=== PATIENT | female | born 1995 | race Caucasian/White ===

== ENCOUNTER 2017-03-08 09:32 | Emergency (ER) | payer BC ==
[~2017-03-08] VITALS: Ht 160 cm; Wt 64.8 kg
[~2017-03-08 09:32] MED LIST: PRENTAB26 PO
[2017-03-08 09:37] VITALS: TEMP 36.8; Ht 160 cm; Wt 64.8 kg
[2017-03-08] MEDS ORDERED: SODIUM CHLORIDE 0.9% 1000ML 1,000 ML IV ONE (09:55)
[2017-03-08] MEDS ORDERED: SODIUM CHLORIDE 0.9% 1000ML 1,000 ML IV STA (09:55)
--- NOTE | 2017-03-08 09:59 | EMERGENCY ROOM VISIT NOTE ---
History Report prepared by Sy: Yoni Bailey Under the Supervision of: Dr. Mayur Carlos M.D. First contact with patient: 09:45 Chief Complaint: WEAKNESS Stated Complaint: WEAKNESS,DIZZINESS,BLEEDING Nursing Triage Summary: Pt states she has a bleeding disorder and her Dr told her to come in to be seen. Pt states bleeding disorder since she was 14, [place] Patient states she started noticing bruising first week of February. Weakness began this weekend. Weakness is bilateral per patient "especially in my legs" 7 months post History of Present Illness The patient is a 22 year old female who presents to the Emergency Room with complaints of constant weakness for the past couple of days and a sudden dizziness spell occurring a few days ago. The patient states that she has a history of Von Willebrand's disease, and she called her PCP, and they told her to come in to the ED for evaluation. She states that she has also been bruising a lot recently and she is very tired and cold. The patient denies any melena or hematochezia. She states that she had a child 7 months ago, and he was delivered without excessive bleeding. She states that her last period was at the beginning of February, and it was heavy which is normal for her. The patient states that she should be taking Amicar while she is menstruating, however she states that she does not take it. She states that she has been keeping up with her fluids. The patient denies any history of bleeding into her joints. Source of History: patient Onset: past couple of days Position: other (global) Quality: other (weakness) Timing: constant Associated Symptoms: No hematochezia, No melena Note: Associated symptoms: Tiredness and bruising Review of Systems See HPI for pertinent positives & negatives. A total of 10 systems reviewed and were otherwise negative. 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 Nurse's notes were reviewed and I agree with. Family History Patient reports no known family medical history. Social History Smoking Status: Current Every Day Smoker Alcohol Use: occasionally Drug Use: none Marital Status: single Occupation Status: student Current/Historical Medications No Active Prescriptions or Reported Meds Allergies Coded Allergies: Aspirin (Verified Allergy, Unknown, not allowed to have per md, 04/11/16) Reported by PT Physical Exam Vital Signs Date Time Temp Pulse Resp B/P Pulse Ox O2 Delivery O2 Flow Rate FiO2 03/08/17 12:45 78 14 109/69 100 03/08/17 11:35 86 12 105/56 96 03/08/17 09:37 36.8 84 16 111/72 98 Room Air Physical Exam General: Non-ill appearing young female in no acute distress. HEENT: Normal cephalic atraumatic. Pupils are equal round and reactive to light. Extraocular movements are intact. Oropharynx is pink with moist mucous membranes. No swelling of the mouth lips or tongue. Neck: Supple with a midline trachea. No meningeal signs or stiffness, no JVD or bruits. No Stridor. Chest: Clear to auscultation bilaterally. No wheezes or rhonchi. No increased work of breathing. Heart: regular rate and rhythm. Abdomen: Soft nontender, nondistended without rebound guarding or rigidity. Extremities: Occasional small bruises on the legs. No petechiae. No cyanosis clubbing or edema. No calf tenderness or assymetry. 2+ patellar reflexes that are symmetrical bilaterally Spine/Back. Non tender to palpation. No CVA tenderness Skin: Good turgor without rashes. Neurologic exam: Cranial nerves two through 12 are intact. Motor and sensation are intact and symmetrical throughout. Medical Decision & Procedures Laboratory Results 03/08/17 10:05 Red Blood Count 4.45, Mean Corpuscular Volume 86.7, Mean Corpuscular Hemoglobin 29.0, Mean Corpuscular Hemoglobin Concent 33.4, Mean Platelet Volume 11.8, Neutrophils (%) (Auto) 61.3, Lymphocytes (%) (Auto) 28.3, Monocytes (%) (Auto) 8.9, Eosinophils (%) (Auto) 1.1, Basophils (%) (Auto) 0.3, Neutrophils # (Auto) 4.54, Lymphocytes # (Auto) 2.10, Monocytes # (Auto) 0.66, Eosinophils # (Auto) 0.08, Basophils # (Auto) 0.02 03/08/17 10:05 Test 03/08/17 10:05 White Blood Count 7.41 K/uL (4.8-10.8) Red Blood Count 4.45 M/uL (4.2-5.4) Hemoglobin 12.9 g/dL (12.0-16.0) Hematocrit 38.6 % (37-47) Mean Corpuscular Volume 86.7 fL (80-100) Mean Corpuscular Hemoglobin 29.0 pg (25-34) Mean Corpuscular Hemoglobin Concent 33.4 g/dl (32-36) Platelet Count 158 K/uL (130-400) Mean Platelet Volume 11.8 fL (7.4-10.4) Neutrophils (%) (Auto) 61.3 % Lymphocytes (%) (Auto) 28.3 % Monocytes (%) (Auto) 8.9 % Eosinophils (%) (Auto) 1.1 % Basophils (%) (Auto) 0.3 % Neutrophils # (Auto) 4.54 K/uL (1.4-6.5) Lymphocytes # (Auto) 2.10 K/uL (1.2-3.4) Monocytes # (Auto) 0.66 K/uL (0.11-0.59) Eosinophils # (Auto) 0.08 K/uL (0-0.5) Basophils # (Auto) 0.02 K/uL (0-0.2) RDW Standard Deviation 45.7 fL (36.4-46.3) RDW Coefficient of Variation 14.4 % (11.5-14.5) Immature Granulocyte % (Auto) 0.1 % Immature Granulocyte # (Auto) 0.01 K/uL (0.00-0.02) Prothrombin Time 10.1 SECONDS (9.0-12.0) Prothromb Time International Ratio 0.9 (0.9-1.1) Activated Partial Thromboplast Time 37.1 SECONDS (21.0-31.0) Partial Thromboplastin Ratio 1.4 Anion Gap 7.0 mmol/L (3-11) Est Creatinine Clear Calc Drug Dose 109.4 ml/min Estimated GFR () 135.5 Estimated GFR (Non- 116.9 BUN/Creatinine Ratio 19.7 (10-20) Calcium Level 8.7 mg/dl (8.5-10.1) Total Bilirubin 0.7 mg/dl (0.2-1) Direct Bilirubin 0.1 mg/dl (0-0.2) Aspartate Amino Transf (AST/SGOT) 16 U/L (15-37) Alanine Aminotransferase (ALT/SGPT) 19 U/L (12-78) Alkaline Phosphatase 67 U/L (45-117) Total Protein 7.0 gm/dl (6.4-8.2) Albumin 4.0 gm/dl (3.4-5.0) Lipase 140 U/L (73-393) Thyroid Stimulating Hormone (TSH) 0.912 uIu/ml (0.300-4.500) Human Chorionic Gonadotropin, Qual NEG (NEG) Laboratory studies as stated above per my review. Medications Administered Medications (Trade) Dose Ordered Sig/Maria Guadalupe Route Start Time Stop Time Status Last Admin Dose Admin Sodium Chloride 1,000 ml @ 999 mls/hr Q1H1M STAT IV 03/08/17 09:55 03/08/17 10:55 DC 03/08/17 10:25 999 MLS/HR Sodium Chloride (Nss 1000ml) 1,000 ml @ 150 mls/hr Q6H40M ONCE IV 03/08/17 09:55 03/08/17 13:00 DC 03/08/17 12:00 150 MLS/HR ED Course 0945: Past medical records reviewed. The patient was evaluated in room A11, and a complete history and physical examination were performed. 0955: Sodium Chloride 1000 ml @ 150 mls/hr IV, Sodium Chloride 1000 ml @ 999 mls /hr IV 1057: I reevaluated the patient, and she was doing well. 1151: I discussed the patient's case with Dr. Mercedes, Hematology, and he states that the patient can follow up with him this week. 1215: Upon reevaluation, the patient is feeling well. I discussed the results and treatment plan with her. She verbalized agreement of the treatment plan. The patient was discharged home. Medical Decision Differentials include, but are not limited to; anemia, thrombocytopenia, infection, bleeding disorder, thyroid disorder, electrolyte or metabolic abnormality. This patient comes in as described above. She has some sort of clotting disorder and has been feeling weak and tired has had some bruising on her legs. She has stable vital signs . She has no petechiae. She looks well. She has had no significant vaginal bleeding or nosebleeds or blood in her stool. She's had no joint bleeding. These symptoms have been going on for several weeks. Multiple blood testing was obtained. She has no fever or white count to suggest infection. She is not anemic. She has normal platelets. She has normal coagulation studies. She's no acute electrode or metabolic abdomen was she's nothing to suggest kidney liver or gallbladder disease. Her TSH is within normal limits and there is nothing to suggest this is related to her thyroid acutely. She has a normal neurologic exam. She has normal reflexes which make Gabriela xie highly unlikely . I did discuss the case with the on- call fulfillment coordinator. 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 At this point she has no evidence of active bleeding she can follow up with the hematology group or primary doctor next couple days for recheck. She was happy the plan and discharged home. Consults Time Called: 1142 Consulting Physician: Dr. Morales, Hematology Returned Call: 1151 I discussed the patient's case with Dr. Mercedes, Hematology, and he states that the patient can follow up with him this week. Impression Primary Impression: Weakness Scribe Attestation The scribe's documentation has been prepared under my direction and personally reviewed by me in its entirety. I confirm that the note above accurately reflects all work, treatment, procedures, and medical decision making performed by me. Departure Information Dispostion Home / Self-Care Prescriptions No Active Prescriptions or Reported Meds Referrals Alberto Huerta M.D. (PCP) Forms HOME CARE DOCUMENTATION FORM, IMPORTANT VISIT INFORMATION Patient Instructions My [facility] qunb Additional Instructions Rest Drink plenty of fluids REturn if: worsening of symptoms, bleeding, any new problems or concerns Follow-up with your Doctor/fulfillment coordinator this week for recheck
[2017-03-08 10:28] LABS: BASO % 0.3 %; BASO ABS # 0.02 K/uL (0-0.2); COMPLETE YES; EOS % 1.1 %; HEMATOCRIT 38.6 % (37-47); IG% 0.1 %; LYMPH % 28.3 %; MEAN CELL VOLUME 86.7 fL (80-100); MEAN CORPUSCULAR HGB CONC 33.4 g/dl (32-36); MEAN PLATELET VOLUME 11.8 fL (7.4-10.4); MONO % 8.9 %; NEUT % 61.3 %; PLATELET COUNT 158 K/uL (130-400); RED BLOOD COUNT 4.45 M/uL (4.2-5.4); WHITE BLOOD COUNT 7.41 K/uL (4.8-10.8)
[2017-03-08 10:36] LABS: INR 0.9 (0.9-1.1); PARTIAL THROMBOPLASTIN RATIO 1.4; PROTHROMBIN TIME (PATIENT) 10.1 SECONDS (9.0-12.0)
[2017-03-08 10:46] LABS: BUN/CREATININE RATIO 19.7 (10-20); CREATININE 0.73 mg/dl (0.60-1.20); POTASSIUM 3.8 mmol/L (3.5-5.1)
[2017-03-08 10:48] LABS: PREG INTERNAL NEGATIVE QC NEG CLEAR BACKGROUND; PREG INTERNAL POSITIVE QC POS CONTROL LINE
[2017-03-08 10:53] LABS: CALCIUM 8.7 mg/dl (8.5-10.1)
[2017-03-08 10:56] LABS: THYROID STIMULATING HORMONE 0.912 uIu/ml (0.300-4.500)
[2017-03-08 12:45] VITALS: BP 109/69; PULSE 78; O2SAT 100
== END 2017-03-08 12:51 | disposition home or self-care (01) ==
LOC: C.EDB 09:33 → C.EDA 12:51
DX: R53.1 Weakness (principal); D68.0 Von Willebrand disease; F17.210 Nicotine dependence, cigarettes, uncomplicated

== ENCOUNTER → 2017-03-11 | Outpatient (CLI) | payer BC ==
[2017-03-11 16:13] LABS: THYROID STIMULATING HORMONE 0.739 uIu/ml (0.300-4.500)
== END | disposition home or self-care (01) ==
LOC: C.LAB 14:19
PROVIDERS: ATTEND Nurse Practitioner
DX: R53.83 Other fatigue (principal); R53.1 Weakness

== ENCOUNTER → 2017-10-20 | Outpatient (CLI) | payer BC | END | disposition home or self-care (01) | LOC: C.LABSPEC 18:28 | PROVIDERS: ATTEND Physician Assistant | DX: Z01.419 Encounter for gynecological examination (general) (routine) without abnormal findings (principal) ==

== ENCOUNTER 2023-05-06 17:22 | Inpatient (IN) ==
[2023-05-06] MEDS ORDERED: SODIUM CHLORIDE 0.9% 1000ML 1,000 ML IV ONE (17:40)
[2023-05-06] MEDS ORDERED: cefTRIAXone SODIUM 2,000 MG/70 ML BAG IV STA (17:40)
--- NOTE | 2023-05-06 17:47 | Emergency Department Note ---
Impression & Plan Sepsis, Acute Lyme disease, Leukopenia ED Provider Note NAME: ARI MARTÍNEZ AGE: 28 SEX: F : 1995 ARRIVES VIA: Walk-In INFORMANT: Patient ED PROVIDER(S): Fransico Reeder DO CHIEF COMPLAINT: chest pain and shortness of breath HPI: Patient is a 28-year-old female with a past medical history of migraine, factor VIII deficiency hemophilia who presents to the ER for chest pain, shortness of breath and achiness since this past Thursday. She was walking around [place] and she notes she was bit in the back of the left leg. She noticed some redness which has been increasing size. No fevers but has been feeling hot and cold. She notes her whole body aches including her bones throughout her whole body. She intermittently gets about 1 to 2 minutes of chest pain. She notes she feels very weak and rundown. No dysuria, urgency, or frequency. No other exacerbating or remitting factors. PAST MEDICAL HISTORY:See Below PAST SURGICAL HISTORY:See Below FAMILY HISTORY:See Below SOCIAL HISTORY:See Below HOME MEDICATIONS:See Below ALLERGIES:See Below VITALS:See Below PHYSICAL EXAMINATION: GENERAL: Sitting up in bed, alert, well appearing, well nourished, no distress, non-toxic EYE EXAM: normal conjunctiva. PERRL and EOM's grossly intact. OROPHARYNX: mucous membranes are moist NECK: supple, no nuchal rigidity, no adenopathy, non-tender LUNGS: Clear to auscultation. Normal chest wall mechanics HEART: no murmurs, S1 normal and S2 normal ABDOMEN: abdomen soft, non-tender, normo-active bowel sounds, no masses, no rebound or guarding. BACK: Back is symmetrical on inspection and there is no deformity, no midline tenderness, no CVA tenderness. SKIN: no rashes and no bruising UPPER EXTREMITIES: upper extremities are grossly normal. LOWER EXTREMITIES: Calves are equal bilateral. DP on the left and PT 2 out of 4. Flexion-extension left hip knee ankle and EHL intact. Erythema and i nduration in the posterior left popliteal fossa NEURO EXAM: Normal sensorium, cranial nerves II-XII grossly intact, normal speech, no gross weakness of arms, no gross weakness of legs. No drift. Finger to nose intact. Gross sensation intact. MEDICAL DECISION MAKING: Patient is a 28-year-old female who presents to the ER for above-stated complaint. IV was established blood work was obtained. Labs show mild leukopenia 4.7 thousand. No significant anemia. Platelets were slightly low at 115. Dimer was negative. BMP on LFTs bilirubin and troponin lipase is unrema rkable. Lyme IgM was equivocal which does suggest Lyme disease. There is an obvious area of erythema in the left popliteal fossa. Question if this is a tick bite. Patient was initially covered with 2 g of Rocephin. I was called to bedside as patient was tachycardic with a heart rate in the 140s and was diaphoretic and was complaining of some chest pain. Repeat chest x-ray was obtained and it was unremarkable. Did order repeat temperature which did take some time and they eventually had a rectal temperature and she was febrile at 39. She was given Tylenol and IV Toradol. She was given 3 L of IV fluids. She was given doxycycline to cover for anaplasmosis as well. They are running a peripheral smear for inclusion bodies. Patient defervesced and was feeling slightly better following this. I discussed the case with Kush Lam for further evaluation management treatment. Triage Nursing notes reviewed. Limited review of prior medical records performed Vital Signs: reviewed and remarkable for HTN Differential diagnosis: Cardiac ischemia, aortic dissection, pulmonary embolism, pneumothorax, pneumonia, pericarditis, myocarditis, esophageal rupture, GERD, cholecystitis, pancreatitis, musculoskeletal, as well as other pathologies. ER treatment provided: See below Diagnostics interpreted by me include EKG and cardiac monitoring as listed below: -Cardiac Monitoring: An order was placed for continuous cardiac monitoring. The monitor shows a rate of 90 with sinus rhythm. -ECG: Sinus rhythm rate 91 Normal axis No PVCs QTc 462 Sinus tachycardia rate of 115 Normal axis No PVCs Poor baseline -Laboratory studies:Interpreted by me as stated above in MDM and shown below. Imaging studies: Xrays: As interpreted by me: Portable AP upright 1 view of the chest shows no focal CTs show: none Consultation(s): As described in [facility] Procedures:none Critical Care: I have personally spent 32 minutes of critical care time in the direct management of this patient. This includes bedside care, interpretation of diagnostic studies, and testing, discussion with consultants, patient, and family members, and other required patient management activities. This 32 minutes is in excess of all separately billable procedures. 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 History of anemia Leg fracture, left GROWTH PLATE PPD positive Sinus bradycardia Von Willebrand disease Surgical History H/O colonoscopy H/O wisdom tooth extraction No history of previous surgery Family History Uncle Cancer Grandfather (Maternal) Cancer Father Clotting disorder Denies family history of Ovarian cancer Prostate cancer Breast cancer Colorectal cancer Social History Smoking Status: Never smoker Second Hand Exposure: No; Do You Dip or Chew Tobacco: No; Hx Alcohol Use: No Hx Substance Use: No Preferred Language: Arabic Hearing Ability: Normal marital status: Current Living Situation: Spouse and Family current occupational status: employed How many Children do You have: 2 Feels Safe at Home: Yes caffeine: Yes Dental Care, Regularly: Yes Physical Activity Frequency: Does not Exercise Seatbelt Use: always Allergies Allergies Allergy/AdvReac Type Severity Reaction Status Date / Time aspirin AdvReac Mild not Verified 04/15/23 11:16 allowed to have per md Home Meds Home Medications Medication Instructions Recorded Confirmed tranexamic acid 500 mg tablet 500 mg PO .COMPLEX 07/31/22 05/06/23 iron 1 tab PO DIRECTED 05/06/23 05/06/23 metoclopramide HCl 10 mg tablet 0 mg PO Q6H PRN nausea and vomiting 05/06/23 05/06/23 (Reglan) Previous Rx's Medication Instructions Recorded meclizine 12.5 mg tablet 12.5 mg PO TID PRN dizziness #30 06/26/22 tabs rizatriptan 10 mg tablet See Rx Instructions PO .COMPLEX #9 10/22/22 tabs amitriptyline 25 mg tablet 25 mg PO DAILY #30 tabs 04/15/23 Results & Data (ED) Vital Signs Vital Signs - 24 hr 05/06/23 17:27 05/06/23 17:56 05/06/23 17:58 Temperature 37.3 C Temperature Source Oral Pulse Rate 86 87 Pulse Rate [Apical] Respiratory Rate 20 Respiratory Effort / Characteristics Non-Labored Spontaneous Respiratory Depth Normal Respiratory Pattern Blood Pressure 141/84 H Blood Pressure [Right Arm] Blood Pressure Mean 103 Blood Pressure Mean [Right Arm] Pulse Oximetry 98 98 Oxygen Delivery Method Room Air Sepsis Recent Fever Within 48 Hours Yes Sepsis New/Unexplained Change in Mental Status No Sepsis Action Taken by Nursing No Action Required 05/06/23 18:01 05/06/23 21:00 05/06/23 21:08 Temperature 37.2 C Temperature Source Oral Pulse Rate Pulse Rate [Apical] 94 H 134 H Respiratory Rate 18 28 H Respiratory Effort / Characteristics Non-Labored Non-Labored Respiratory Depth Normal Normal Respiratory Pattern Regular Blood Pressure Blood Pressure [Right Arm] 127/73 127/73 Blood Pressure Mean Blood Pressure Mean [Right Arm] 91 91 Pulse Oximetry 98 97 Oxygen Delivery Method Room Air Room Air Sepsis Recent Fever Within 48 Hours Sepsis New/Unexplained Change in Mental Status Sepsis Action Taken by Nursing 05/06/23 21:08 05/06/23 21:22 05/06/23 21:25 Temperature Temperature Source Pulse Rate 135 H Pulse Rate [Apical] 135 H Respiratory Rate Respiratory Effort / Characteristics Respiratory Depth Respiratory Pattern Blood Pressure Blood Pressure [Right Arm] 112/50 L Blood Pressure Mean Blood Pressure Mean [Right Arm] 70 Pulse Oximetry Oxygen Delivery Method Sepsis Recent Fever Within 48 Hours Sepsis New/Unexplained Change in Mental Status Sepsis Action Taken by Nursing 05/06/23 21:38 Temperature 39.3 C H Temperature Source Rectal Pulse Rate Pulse Rate [Apical] Respiratory Rate Respiratory Effort / Characteristics Respiratory Depth Respiratory Pattern Blood Pressure Blood Pressure [Right Arm] Blood Pressure Mean Blood Pressure Mean [Right Arm] Pulse Oximetry Oxygen Delivery Method Sepsis Recent Fever Within 48 Hours Sepsis New/Unexplained Change in Mental Status Sepsis Action Taken by Nursing Laboratory Data 05/06/23 17:55 05/06/23 17:55 Lab Results 05/06/23 05/06/23 05/06/23 Range/Units 17:55 17:55 17:55 WBC 4.78 L (4.8-10.8) K/ul RBC 4.11 L (4.20-5.40) M/uL Hgb 12.1 (12.0-16.0) g/dl Hct 35.1 L (37.0-47.0) % MCV 85.4 (80.0-100.0) fL MCH 29.4 (25.0-34.0) pg MCHC 34.5 (32.0-36.0) g/dL RDW Std Deviation 38.3 (36.4-46.3) fL RDW Coeff of Pari 12.3 (11.5-14.5) % Plt Count 115 L (130-400) K/uL MPV 10.9 (9.4-12.4) fL Immature Gran % (Auto) 0.2 % Neut % (Auto) 73.8 % Lymph % (Auto) 14.9 % [place] % (Auto) 10.7 % Eos % (Auto) 0.2 % Baso % (Auto) 0.2 % Neut # (Auto) 3.53 (1.40-6.50) K/uL Lymph # (Auto) 0.71 L (1.2-3.4) K/uL [place] # (Auto) 0.51 (0.11-0.59) K/uL Eos # (Auto) 0.01 (0-0.50) K/uL Baso # (Auto) 0.01 (0-0.2) K/uL Immature Gran # (Auto) 0.01 (0.01-0.20) K/uL D-Dimer 230 (0-500) ug/L FEU Sodium 137 (136-145) mmol/L Potassium 3.8 (3.5-5.1) mmol/L Chloride 102 (98-107) mmol/L Carbon Dioxide 27 (21-32) mmol/L Anion Gap 8 (3-11) BUN 14 (6-23) mg/dl Creatinine 0.72 (0.6-1.2) mg/dl Est Cr Clr Drug Dosing 112.9 ml/min Est GFR ( Amer) 132.1 ml/min Est GFR (Non-Af Amer) 114.0 ml/min BUN/Creatinine Ratio 19.4 (10-20) Glucose 87 (70-99(Fasting)) mg/dl Calcium 9.2 (8.6-10.3) mg/dl Total Bilirubin 0.7 (0.2-1.0) mg/dl AST 18 (13-39) U/L ALT 13 (7-52) U/L Alkaline Phosphatase 68 (34-104) U/L Troponin I High Sens < 2.3 (0-14) pg/ml Total Protein 7.5 (6.0-8.3) gm/dl Albumin 4.7 (3.4-5.0) gm/dl Globulin 2.8 (2.5-4.0) gm/dl Albumin/Globulin Ratio 1.7 (0.9-2) Lipase 15 (11-82) U/L Lyme Disease IgG Ab (Negative) Lyme Disease IgM Ab (Negative) SARS-CoV-2, RNA, NAAT (NEGATIVE) 05/06/23 05/06/23 05/06/23 Range/Units 17:55 20:40 21:52 WBC (4.8-10.8) K/ul RBC (4.20-5.40) M/uL Hgb (12.0-16.0) g/dl Hct (37.0-47.0) % MCV (80.0-100.0) fL MCH (25.0-34.0) pg MCHC (32.0-36.0) g/dL RDW Std Deviation (36.4-46.3) fL RDW Coeff of Pari (11.5-14.5) % Plt Count (130-400) K/uL MPV (9.4-12.4) fL Immature Gran % (Auto) % Neut % (Auto) % Lymph % (Auto) % [place] % (Auto) % Eos % (Auto) % Baso % (Auto) % Neut # (Auto) (1.40-6.50) K/uL Lymph # (Auto) (1.2-3.4) K/uL [place] # (Auto) (0.11-0.59) K/uL Eos # (Auto) (0-0.50) K/uL Baso # (Auto) (0-0.2) K/uL Immature Gran # (Auto) (0.01-0.20) K/uL D-Dimer (0-500) ug/L FEU Sodium (136-145) mmol/L Potassium (3.5-5.1) mmol/L Chloride (98-107) mmol/L Carbon Dioxide (21-32) mmol/L Anion Gap (3-11) BUN (6-23) mg/dl Creatinine (0.6-1.2) mg/dl Est Cr Clr Drug Dosing ml/min Est GFR ( Amer) ml/min Est GFR (Non-Af Amer) ml/min BUN/Creatinine Ratio (10-20) Glucose (70-99(Fasting)) mg/dl Calcium (8.6-10.3) mg/dl Total Bilirubin (0.2-1.0) mg/dl AST (13-39) U/L ALT (7-52) U/L Alkaline Phosphatase (34-104) U/L Troponin I High Sens < 2.3 (0-14) pg/ml Total Protein (6.0-8.3) gm/dl Albumin (3.4-5.0) gm/dl Globulin (2.5-4.0) gm/dl Albumin/Globulin Ratio (0.9-2) Lipase (11-82) U/L Lyme Disease IgG Ab Negative (Negative) Lyme Disease IgM Ab Equivocal A (Negative) SARS-CoV-2, RNA, NAAT NEGATIVE (NEGATIVE) Administered Medications Sodium Chloride (Nss 1000ml) 2,000 mls @ 999 mls/hr IV .Q2H1M ONE Stop: 05/06/23 23:34 Last Admin: 05/06/23 21:38 Dose: 999 mls/hr Documented By: IMTIAZ Discontinued Medications Acetaminophen (Acetaminophen 500 Mg Tab) 1,000 mg PO NOW STA Stop: 05/06/23 21:06 Last Admin: 05/06/23 21:13 Dose: 1,000 mg Documented By: IMTIAZ Ceftriaxone Sodium (Rocephin) 2,000 mg in 70 mls @ 140 mls/hr IV NOW STA Stop: 05/06/23 18:09 Last Infusion: 05/06/23 20:54 Dose: 0 mls/hr Documented By: Admin: 05/06/23 17:58 Dose: 140 mls/hr Documented By: MES Sodium Chloride (Nss 1000ml) 1,000 mls @ 999 mls/hr IV .Q1H1M ONE Stop: 05/06/23 18:40 Last Infusion: 05/06/23 20:55 Dose: 0 mls/hr Documented By: Admin: 05/06/23 17:58 Dose: 999 mls/hr Documented By: MES Ketorolac Tromethamine (Ketorolac Tromethamine 15 Mg/Ml Vial) 15 mg IV NOW ONE Stop: 05/06/23 21:06 Last Admin: 05/06/23 21:13 Dose: 15 mg Documented By: HNB Imaging Data Radiologist's Impression: Chest X-Ray 05/06/23 17:31 XR chest 1V portable HISTORY: Chest pain, nonspecific COMPARISON: Chest 07/31/2022. FINDINGS: The lungs are clear. Cardiac silhouette is normal in size. No pleural effusions. No pneumothorax. IMPRESSION: No acute process. ACT 112: Negative or not required by law. Electronically signed by: Milton Huff M.D. 05/06/2023 7:03 PM Discharge Plan Visit Data Chief Complaint: Illness Stated Complaint: WEAKNESS,FATIGUE,SOB,CHEST PAIN,BITE NADIRA ED Provider: Fransico Reeder Discharge Problem: Sepsis, Acute Lyme disease, Leukopenia Forms Stand Alone Forms: [facility] [employer] Prescriptions Prescriptions: No Action meclizine 12.5 mg tablet 12.5 mg PO TID PRN (Reason: dizziness) Qty: 30 0RF Fluzone Quad (PF) 60 mcg (15 mcg x 4)/0.5 mL syringe 0.5 ml IM ONCE Qty: 0.5 0RF tranexamic acid 500 mg tablet 500 mg PO .COMPLEX Rx Instructions: 1000 mg orally every 4 hours during menstrual cycle; rizatriptan 10 mg tablet See Rx Instructions PO .COMPLEX Qty: 9 2RF Rx Instructions: take 1 tab at onset of headache; if no relief may repeat 1 tab after at least 2 hrs; max = 3 tabs/24 hr PO amitriptyline 25 mg tablet 25 mg PO DAILY Qty: 30 2RF Nurtec ODT 75 mg tablet,disintegrating 75 mg PO DIRECTED PRN (Reason: Migraine Headache) 0RF metoclopramide HCl [Reglan] 10 mg tablet 0 mg PO Q6H PRN (Reason: nausea and vomiting) Rx Instructions: pt isn't sure of this medication iron 1 tab PO DIRECTED Referrals Referrals: Frandy Saldana DO [Physician] -
[2023-05-06 18:28] LABS: Basophils # (auto) 0.01 K/uL (0-0.2); Basophils % (auto) 0.2 %; Eosinophils # (auto) 0.01 K/uL (0-0.50); Eosinophils % (auto) 0.2 %; Hematocrit (blood only) 35.1 % (37.0-47.0); Hemoglobin 12.1 g/dl (12.0-16.0); Immature Granulocytes # (auto) 0.01 K/uL (0.01-0.20); Immature Granulocytes % (auto) 0.2 %; Lymphocytes # (auto) 0.71 K/uL (1.2-3.4); Lymphocytes % (auto) 14.9 %; Mean Corpuscular Hemoglobin 29.4 pg (25.0-34.0); Mean Corpuscular Hgb Conc 34.5 g/dL (32.0-36.0); Mean Corpuscular Volume 85.4 fL (80.0-100.0); Mean Platelet Volume 10.9 fL (9.4-12.4); Monocytes # (auto) 0.51 K/uL (0.11-0.59); Monocytes % (auto) 10.7 %; Neutrophils # (auto) 3.53 K/uL (1.40-6.50); Neutrophils % (auto) 73.8 %; Platelet Count 115 K/uL (130-400); RDW Coefficient of Variation 12.3 % (11.5-14.5); RDW Standard Deviation 38.3 fL (36.4-46.3); Red Blood Count 4.11 M/uL (4.20-5.40); White Blood Count 4.78 K/ul (4.8-10.8)
[2023-05-06 18:45] LABS: Alanine Aminotransferase 13 U/L (7-52); Albumin Globulin Ratio 1.7 (0.9-2); Albumin Level 4.7 gm/dl (3.4-5.0); Alkaline Phosphatase 68 U/L (34-104); Anion Gap 8 (3-11); Aspartate Aminotransferase 18 U/L (13-39); BUN Creatinine Ratio 19.4 (10-20); Bilirubin,Total 0.7 mg/dl (0.2-1.0); Blood Urea Nitrogen 14 mg/dl (6-23); Calcium 9.2 mg/dl (8.6-10.3); Carbon Dioxide 27 mmol/L (21-32); Chloride 102 mmol/L (98-107); Creatinine Clr Calc Pharmacy 112.9 ml/min; Est GFR (African American) 132.1 ml/min; Globulin 2.8 gm/dl (2.5-4.0); Glucose 87 mg/dl (70-99(Fasting)); Lipase 15 U/L (11-82); Potassium 3.8 mmol/L (3.5-5.1); Sodium 137 mmol/L (136-145); Total Protein 7.5 gm/dl (6.0-8.3)
[2023-05-06 18:51] LABS: Troponin I High Sensitivity < 2.3 pg/ml (0-14)
[2023-05-06 18:55] LABS: D Dimer 230 ug/L FEU (0-500)
[2023-05-06 19:03] LABS: Lyme Ab IgG w/WB Rflx Negative (Negative)
--- NOTE | 2023-05-06 19:04 | XRay Report ---
XR chest 1V portable HISTORY: Chest pain, nonspecific COMPARISON: Chest 07/31/2022. FINDINGS: The lungs are clear. Cardiac silhouette is normal in size. No pleural effusions. No pneumot horax. IMPRESSION: No acute process. ACT 112: Negative or not required by law. Electronically signed by: Milton Huff M.D. 05/06/2023 7:03 PM
[2023-05-06 19:15] LABS: Lyme Ab IgM w/WB Rflx Equivocal (Negative)
[2023-05-06] MEDS ORDERED: KETOROLAC TROMETHAMINE 15 MG/ML VIAL IV ONE (21:05)
[2023-05-06] MEDS ORDERED: ACETAMINOPHEN 500 MG TAB PO STA (21:05)
[2023-05-06] MEDS ORDERED: SODIUM CHLORIDE 0.9% 1000ML 2,000 ML IV ONE (21:34)
[2023-05-06] MEDS ORDERED: DOXYCYCLINE HYCLATE 100 MG in DEXTROSE 5% 100 ML IV STA (21:44)
[2023-05-06] MEDS ORDERED: VANCOMYCIN CONSULT ACTIVE PRN (22:47)
[2023-05-06] MEDS ORDERED: VANCOMYCIN HCL 1,500 MG in SODIUM CHLORIDE 0.9% 500 ML IV STA (22:51)
[2023-05-06 23:33] LABS: Lactate Dehydrogenase 187 U/L (86-244)
[2023-05-06 23:42] LABS: Appearance Urine Clear (Clear); Bilirubin Urine Negative (Negative); Blood Urine Negative (Negative); Color Urine Yellow; Glucose Urine UA Negative (Negative); Ketones Urine 1+ (Negative); Leukocyte Esterase Urine Negative (Negative); Nitrite Urine Negative (Negative); Protein Urine Negative (Negative); Urobilinogen Urine Negative (Negative)
--- NOTE | 2023-05-06 23:42 | History & Physical Report ---
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 Work-up thus far has not been conclusive as to the cause of the patient's symptoms, but equivocal IgM Lyme antibody is positive. Patient will be admitted for further work-up and broad-spectrum antibiotic treatment. -Admit to telemetry -Meeting SIRS criteria on admission with tachypnea, fever, and tachycardia -Patient received 3 L of fluid in the ED, continue maintenance with lactated ringer -Source not identified as of yet. -Rash behind left knee does not appear to be erythema migrans -Timeline between bite and symptoms would not be indicative of acute Lyme disease albeit cannot be ruled out entirely at this time -Anaplasma and Babesia smears negative -Blood cultures taken and pending -UA awaiting to be collected at the time of writing this note but no urinary symptoms per patient -Given concern for tickborne illness Rocephin and doxycycline on board at this time, vancomycin added as well given possible skin source with rash behind left knee -[facility] [place] infectious disease consult ordered, appreciate recommendations -Morning CBC, CMP, CRP (2) Elevated partial thromboplastin time (PTT): Plan: - Suspect from chronic bleeding disorders noted in chart -Unsure of actual diagnosis the patient has: Multiple notes say that she is only a carrier for either von Willebrand disease 2 and or hemophilia VIII without ruiz diagnosis. 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: Plan: See above (4) Von Willebrand disease: Plan: See above (5) History of migraine headaches: Plan: - Continue amitriptyline daily -Triptans as needed for termination Plan Dispo: Admit to telemetry for further infectious work-up and infectious disease consultation Diet: Regular DVT prophylaxis: SCDs CODE STATUS: Full code History of Present Illness Chief Complaint: General Unwellness Primary Care Provider: Ryann Lopes MD Patient is a 28-year-old female with past medical history of migraines, carrier of von Willebrand factor 2N versus 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 Apparently, patient has a camp that they go to and recently [place] [facility] [place], she notes that she was bit in the back of her left leg. Since that Thursday, she has had redness that has been increasing in size. Overall has been doing okay on the first and second day but became progressively more achy and generally unwell. She reports feeling hot and cold since this happened but no recorded fevers at home. No nausea or vomiting. She reports she feels very weak. No urinary symptoms. Majority of the information above was gathered from the patient's who is in the ED room because patient is quite lethargic. The patient is able to tell me that she has a headache at the back of her head. No neck stiffness or neurologic deficits as she is able to report. No other complaints at this time ED course: Patient evaluated in the ED and lab results significant for white blood cell count of 4.78, platelet count of 115, negative high-sensitivity troponin, and an equivocal Lyme IgM antibody. Negative Babesia and anaplasmosis peripheral blood smear. Chest x-ray showing no acute process. EKG showing normal sinus rhythm with nonspecific ST changes. Patient to be admitted and consulted by hospitalist service due to SIRS criteria with possible source being tickborne illness. Allergies Allergy/AdvReac Type Severity Reaction Status Date / Time aspirin AdvReac Mild not Verified 04/15/23 11:16 allowed to have per md Home Medications Medication Instructions Recorded Confirmed Type meclizine 12.5 mg tablet 12.5 mg PO TID PRN dizziness #30 06/26/22 05/06/23 Rx tabs tranexamic acid 500 mg tablet 500 mg PO .COMPLEX 07/31/22 05/06/23 History rizatriptan 10 mg tablet See Rx Instructions PO .COMPLEX #9 10/22/22 05/06/23 Rx tabs amitriptyline 25 mg tablet 25 mg PO DAILY #30 tabs 04/15/23 05/06/23 Rx iron 1 tab PO DIRECTED 05/06/23 05/06/23 History metoclopramide HCl 10 mg tablet 0 mg PO Q6H PRN nausea and vomiting 05/06/23 05/06/23 History (Reglan) Past Med/Surg History Medical History (Updated 05/07/23 @ 16:31 by Teresa George MD) Depression with anxiety Dry skin Epidermoid cyst 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 History of anemia Leg fracture, left GROWTH PLATE PPD positive Sinus bradycardia Von Willebrand disease Surgical History H/O colonoscopy H/O wisdom tooth extraction No history of previous surgery Family History Uncle Cancer Grandfather (Maternal) Cancer Father Clotting disorder Denies family history of Ovarian cancer Prostate cancer Breast cancer Colorectal cancer Social History Smoking Status: Former smoker Second Hand Exposure: No; Do You Dip or Chew Tobacco: No; Hx Alcohol Use: No Hx Substance Use: No Preferred Language: Com[place]an Communication Ability: Effective Hearing Ability: Normal 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 Beliefs That Will Affect Care: None marital status: Current Living Situation: Spouse Current Living Situation Comment: with current occupational status: employed How many Children do You have: 2 Other Information That Helps Us Care for You: No Feels Safe at Home: Yes Safety Concerns: Feels Safe At This Time caffeine: Yes Dental Care, Regularly: Yes Physical Activity Frequency: Does not Exercise Seatbelt Use: always Assistive Devices: None Review of Systems Review of Systems: All systems reviewed & are unremarkable except as noted in HPI & below Physical Exam Constitutional: well developed, well nourished, + ill appearing and + lethargic Eyes: + anicteric sclerae Neck: normal visual inspection Respiratory: normal respiratory effort, lungs clear to auscultation Cardiovascular: Rate/Rhythm: regular rhythm and + tachycardic Extremities: no edema Gastrointestinal (Abdomen): Inspection/Auscultation: abdomen normal to inspection Musculoskeletal: Head/Neck/Chest: normocephalic and head atraumatic Generally weak Skin: Pt is diaphoretic Neurologic: moves all extremities Psychiatric: Orientation: alert, oriented x 3 and cooperative Lymphatic: no cervical or axillary lymphadenopathy Results & Data Results & Data Vital Signs (Past 12 Hours) Vital Signs Temp Pulse Pulse Resp BP BP Pulse Ox 05/06/23 23:37 107/62 05/06/23 23:00 90 17 115/61 98 05/06/23 21:38 39.3 C H 05/06/23 21:25 135 H 05/06/23 21:22 112/50 L 05/06/23 21:08 135 H 05/06/23 21:08 37.2 C 05/06/23 21:00 134 H 28 H 127/73 97 05/06/23 18:01 94 H 18 127/73 98 05/06/23 17:58 98 05/06/23 17:56 87 05/06/23 17:27 37.3 C 86 20 141/84 H 98 O2 Del Method 05/06/23 23:37 05/06/23 23:00 Room Air 05/06/23 21:38 05/06/23 21:25 05/06/23 21:22 05/06/23 21:08 05/06/23 21:08 05/06/23 21:00 Room Air 05/06/23 18:01 Room Air 05/06/23 17:58 05/06/23 17:56 05/06/23 17:27 Room Air Supervising Physician Co-Signing Physician Notes Attending addendum: I have physically seen this patient, have supervised the medical residents activities, and agree with the H&P unless as otherwise noted. 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
[2023-05-06] MEDS ORDERED: ENOXAPARIN INJ 40 MG/0.4 ML SYR SQ SCH (23:45)
[2023-05-06] MEDS ORDERED: RIZATRIPTAN BENZOATE 10 MG TAB PO PRN (23:47)
[2023-05-06] MEDS ORDERED: ONDANSETRON INJ 2 MG/ML 2 ML VIAL IV PRN (23:47)
[2023-05-07] MEDS: LACTATED RINGER'S 1,000 ML IV SCH ×3 (00:09→19:11)
[2023-05-07 00:42] LABS: Fibrinogen 402 mg/dl (184-400); Partial Thromboplastin Ratio 1.6
[2023-05-07 00:50] LABS: Partial Thromboplastin Time 43.9 Seconds (21.0-31.0)
[2023-05-07] MEDS: ACETAMINOPHEN 325 MG TAB PO PRN ×4 (03:58→17:19)
[2023-05-07 07:08] LABS: Alanine Aminotransferase 19 U/L (7-52); Albumin Globulin Ratio 1.6 (0.9-2); Albumin Level 3.5 gm/dl (3.4-5.0); Alkaline Phosphatase 50 U/L (34-104); Anion Gap 5 (3-11); Aspartate Aminotransferase 23 U/L (13-39); BUN Creatinine Ratio 15.4 (10-20); Basophils # (auto) 0.01 K/uL (0-0.2); Basophils % (auto) 0.3 %; Bilirubin,Total 0.6 mg/dl (0.2-1.0); Blood Urea Nitrogen 8 mg/dl (6-23); C Reactive Protein 4.98 mg/dl (0-0.5); Calcium 7.7 mg/dl (8.6-10.3); Carbon Dioxide 23 mmol/L (21-32); Chloride 110 mmol/L (98-107); Creatinine Clr Calc Pharmacy 156.7 ml/min; Est GFR (African American) > 150.0 ml/min; Globulin 2.2 gm/dl (2.5-4.0); Glucose 91 mg/dl (70-99(Fasting)); Hematocrit (blood only) 30.7 % (37.0-47.0); Hemoglobin 10.7 g/dl (12.0-16.0); Immature Granulocytes # (auto) 0.01 K/uL (0.01-0.20); Immature Granulocytes % (auto) 0.3 %; Mean Corpuscular Hemoglobin 29.6 pg (25.0-34.0); Mean Corpuscular Hgb Conc 34.9 g/dL (32.0-36.0); Mean Corpuscular Volume 84.8 fL (80.0-100.0); Mean Platelet Volume 11.2 fL (9.4-12.4); Monocytes # (auto) 0.54 K/uL (0.11-0.59); Monocytes % (auto) 13.5 %; Neutrophils # (auto) 2.84 K/uL (1.40-6.50); Neutrophils % (auto) 70.9 %; Platelet Count 79 K/uL (130-400); Platelet Estimate Decreased (Normal); Potassium 3.6 mmol/L (3.5-5.1); RDW Coefficient of Variation 12.1 % (11.5-14.5); RDW Standard Deviation 37.2 fL (36.4-46.3); Red Blood Count 3.62 M/uL (4.20-5.40); Sodium 138 mmol/L (136-145); Total Protein 5.7 gm/dl (6.0-8.3)
[2023-05-07] MEDS: VANCOMYCIN HCL 1,000 MG in SODIUM CHLORIDE 0.9% 250 ML IV SCH ×2 (07:39→17:14)
--- NOTE | 2023-05-07 08:12 | Hospitalist Progress Note ---
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 Work-up thus far has not been inconclusive as to the cause of the patient's symptoms. Equivocal IgM Lyme antibody is positive. Patient's low WBC (4) and low platelets (79) raise suspicion of anaplasmosis. Patient has an insect bite behind her left calf from 5 days ago that is surrounded by an area of erythema. Does not appear to be erythema migrans. Possible spider bite vs insect bite with surrounding cellulitis. Of note, the patient's son had a temperature (101.9) last night but no other symptoms. Patient admitted on broad spectrum antibiotics: doxycycline for coverage of possible tick-borne infection, vancomycin for possible spider bite coverage, and for cellulitis coverage. Infectious disease consulted, appreciate recs. SIRS: -Admit to telemetry -Meeting SIRS criteria on admission with tachypnea, fever, and tachycardia Patient has been afebrile since 05/06 21:00, pulse and respiratory rate within normal limits. -Patient received 3 L of fluid in the ED, continue maintenance with lactated ringer -Source not identified as of yet. -Rash behind left knee does not appear to be erythema migrans -Timeline between bite and symptoms would not be indicative of acute Lyme disease but given endemic region cannot be ruled out entirely at this time. Lyme IgM equivocal, IgG negative. Lyme western blot pending. -Anaplasma and Babesia smears negative -- PCR ordered per ID -Blood cultures taken and pending -UA negative for nitrites. -Rocephin, doxycycline, vancomycin started on admission -- Rocephin stopped 05/07. -[facility] [place] infectious disease consult ordered, appreciate recommendations -Per ID, respiratory viral panel ordered -- negative -Morning CBC, CMP, CRP Chest Pain: -CXR performed in ED was negative. -Troponins within normal limits -Repeat ECG 05/07 showed normal sinus rhythm. -TTE performed 05/07, results pending. -Consider chest CT if cardiopulmonary chest pain does not resolve. (2) Elevated partial thromboplastin time (PTT): Plan: - Suspect from chronic bleeding disorders noted in chart -Unsure of actual diagnosis the patient has: Multiple notes say that she is only a carrier for either von Willebrand disease 2 and or hemophilia VIII without ruiz diagnosis. 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: Plan: See above (4) Von Willebrand disease: Plan: See above (5) History of migraine headaches: Plan: - Continue amitriptyline daily -Triptans as needed for termination Plan Dispo: Admit to telemetry for further infectious work-up and infectious disease consultation Diet: Regular DVT prophylaxis: SCDs CODE STATUS: Full code Admission and Anticipated Discharge Date Admission Date: May 06, 2023 Supervising Physician Co-Signing Physician Notes I personally examined the patient and verified all dugan points of history and exam, discussed case, and 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 Vitals noted, in general she is awake and alert pleasant no distress. HEENT normocephalic atraumatic mucous membranes moist. Breathing unlabored no accessory muscle use good effort. [place]-colored minimally tender patch of erythema behind her knee, no necrosisbut she shows me a picture from yesterday and had a distinctly deep purple center which has now resolved. 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 Her picture from yesterday makes it seem quite consistent that the lesion behind her knee may have been cellulitis from a spider bite. Continue Vanco and Doxy for now, improving, continue to follow closely. Hopefully home soon. Chest pain likely secondary to myalgias from anaplasmosisbut follow, await echo. If it worsens or she develops any respiratory symptomsthen would want to reimage chest to look for any telltale signs that it would actually be BBC with some pulmonary involvementbut this seems very unlikely. Subjective 05/07: This morning Estefanía is feeling better than yesterday but still very uncomfortable. She says her joint/bone pain feels improved, but she is complaining of a headache and more frequent chest pain. Patient describes her chest pain as crushing, but non-radiating, and notes that it is associated with dyspnea. Pain is not reproducible with palpation, but patient notes that all of her joints are tender to the touch. Physical Exam Physical Exam: Constitutional: well developed, well nourished, ill appearing and lethargic HEENT: NCAT, anicteric sclerae Neuro: AO x 3, no focal neurologic defects Respiratory: normal respiratory effort, lungs clear to auscultation Cardiovascular: regular rhythm and tachycardic, no rubs murmurs or gallops. No edema Gastrointestinal (Abdomen): Normoactive bowel sounds. Non-tender, non-distended Musculoskeletal: Head/Neck/Chest: normocephalic and head atraumatic. Overally generally weak Skin: Erythematous rash behind the left knee with insect bite at the center - no associated central necrosis or fluctuance. Left knee warm to the touch compared to right. Results & Data Results & Data Vital Signs (Past 12 Hours) Vital Signs Temp Pulse Pulse Resp BP Pulse Ox Pulse Ox 05/07/23 05:33 90 05/07/23 04:54 37 C 96 H 14 100/64 96 05/07/23 03:58 36.5 C 05/06/23 22:18 77 18 108/61 98 05/06/23 23:47 81 18 108/64 98 05/06/23 23:47 98 05/06/23 23:37 107/62 05/06/23 23:00 90 17 115/61 98 05/06/23 21:38 39.3 C H 05/06/23 21:25 135 H 05/06/23 21:22 112/50 L 05/06/23 21:08 135 H 05/06/23 21:08 37.2 C 05/06/23 21:00 134 H 28 H 127/73 97 O2 Del Method O2 Del Method 05/07/23 05:33 05/07/23 04:54 Room Air 05/07/23 03:58 05/06/23 22:18 Room Air 05/06/23 23:47 Room Air 05/06/23 23:47 Room Air 05/06/23 23:37 05/06/23 23:00 Room Air 05/06/23 21:38 05/06/23 21:25 05/06/23 21:22 05/06/23 21:08 05/06/23 21:08 05/06/23 21:00 Room Air
[2023-05-07] MEDS: AMITRIPTYLINE HCL 25 MG TAB PO SCH (08:38)
[2023-05-07] MEDS: ADVANCED PROBIOTIC 1250 MG CAPSULE PO SCH (08:38)
--- NOTE | 2023-05-07 09:27 | Infectious Disease Consult ---
Date of Consultation May 07, 2023 Assessment & Plan (1) Leukopenia: (2) Thrombocytopathia: (3) Fever: Plan Micro: 05/06 Anaplasma/Babesia smear: neg 05/06 Lyme screen: IgM equivocal, IgG negative. 05/06 COVID-19: neg 05/06 BCx x2: pending Abx: Vanc 05/06 - present Ceftriaxone 05/06 Doxycycline 05/06 - present Problems: #Fever #Leukopenia #Thrombocytopenia 28 yo F with history of factor VIII deficiency, chronic thrombocytopenia, iron deficiency anemia, migraines who presented on 05/06 with chest pain, shortness of breath, achiness x 5 days, found to have fever, leukopenia, thrombocytopenia. Pt sustained an insect bite on posterior L thigh on 05/02 while sitting under a pavilion in a [place]ed area, and developed some redness in the area with associated pain. Denies spreading erythema. On the night of 05/03, she began developing symptoms of generalized weakness and malaise, feeling hot/cold, shortness of breath, chest pain. On presentation, initial VSS, but pt became febrile to 39.3, tachycardic to 130s in the evening. Labs showed WBC 4.78, Hb 12.1, plt 115 (has been ~140-160 over the last 2 years), normal LFTs, normal lactate, UA negative, COVID-19 negative. CXR negative. Lyme screen with equivocal IgM, negative IgG. Lyme western blot pending. Anaplasma/Babesia smear negative. Anaplasma PCR pending. Pt was started on empiric vanc, ceftriaxone, doxycycline. Thrombocytopenia worsened to 79 on 05/07. On 05/07, pt is feeling some improvement in her malaise and shortness of breath. Aching chest pain is more localized to L chest. Has a posterior headache, but no neck stiffness. Denies cough, sore throat, rhinorrhea, abd pain, diarrhea, dysuria, other rashes. On day of admission, there was an area of central darkening in the erythema, which is no longer there 05/07. [place], but does not interact with the cows much. Her son had a T101.9 last night, but is not displaying other symptoms. Denies recent travel. Has never traveled outside of the [place]. If this were a tickborne illness, it would likely be unrelated to the insect bite she sustained on 05/02, as tickborne illness typically has a longer incubation period. [place] in [place] area, so tickborne illness remains in the differential given her leukopenia and thrombocytopenia. Pt's showed a picture of the rash on 05/06 showing a central darkening--could consider a spider bite with systemic symptoms. Recommendations: -Continue empiric doxycycline 100 mg PO BID -Follow-up Lyme western blot -Ordered Ehrlichia PCR, Babesia PCR, respiratory viral panel -Consider discontinuation of vanc Discussed with primary team. Will continue to follow. Please page [facility] with further questions. Consultation Information Consultation was provided via telemedicine using two-way real-time interactive telecommunication between the patient and the telemedicine provider. For the duration of the visit, the provider was performing the assessment from a different facility than the patient. This includesuse of bluetooth stethoscope forauscultationperformed by the telepresenter that the telemedicine provider can hear if described in the physical exam. Care Associate contact information: Please call [facility] . (Phone Number For Physician Use Only) After establishing a telemedicine visit, patient was: Patient was verified with two unique identifiers, Patient/authorized rep acknowledged consent and understanding and Gave permission to continue telehealth session Time Spent with Patient: Initial => 40 min History of Present Illness Reason for Consultation: SIRS with unknown source, possible tickborne illness Attending Physician: Fransico James DO History of Present Illness 28 yo F with history of factor VIII deficiency, chronic thrombocytopenia, iron deficiency anemia, migraines who presented on 05/06 with chest pain, shortness of breath, achiness x 5 days. Pt reports that she was sitting under a pavilion in a wooded area on 05/02 and got an insect bite on the back of her L leg. She did not visualize the insect. She developed some redness in the area of the bite, with associated pain. She does not feel the erythema has been spreading. On the night of 05/03, she began developing symptoms of generalized weakness and malaise, feeling hot/cold, shortness of breath, chest pain. On presentation, initial VSS, but pt became febrile to 39.3, tachycardic to 130s in the evening. Labs showed WBC 4.78, Hb 12.1, plt 115 (has been ~140-160 over the last 2 years), normal LFTs, normal lactate, UA negative, COVID-19 negative. CXR negative. Lyme screen with equivocal IgM, negative IgG. Lyme western blot pending. Anaplasma/Babesia smear negative. Anaplasma PCR pending. Pt was started on empiric vanc, ceftria xone, doxycycline. Plt decreased to 79 today. Pt reports feeling a bit better today. Yesterday, she felt like her "bones were going to break in half", but today the sensitivity is not as bad. The chest pain from yesterday is becoming more localized to the L chest--described as a constant aching. Her shortness of breath is improved, and for the most part back to normal. She reports a posterior headache, no neck stiffness. Denies cough, sore throat, rhinorrhea, abd pain, diarrhea, dysuria, other rashes. On day of admission, there was an area of central darkening in the erythema, which is no longer there today. Pt lives with her and two children ages 4 and 6. One son had a temperature of 101.9 last night, but is not displaying other symptoms. She lives in the [facility] and they own a dairy farm. She is not aware of known tick bites. She is a clinical nursing assistant. She has an indoor pet cat. There are cows on the dairy farm, but the pt does not interact with them much (petted one the other day). Denies other animal exposures. Denies recent travel. Was born in [place], [place] and has never traveled outside of the country. She had family visiting from [place] recently. Allergies Allergy/AdvReac Type Severity Reaction Status Date / Time aspirin AdvReac Mild not Verified 04/15/23 11:16 allowed to have per md Home Medications Medication Instructions Recorded Confirmed Type meclizine 12.5 mg tablet 12.5 mg PO TID PRN dizziness #30 06/26/22 05/06/23 Rx tabs tranexamic acid 500 mg tablet 500 mg PO .COMPLEX 07/31/22 05/06/23 History rizatriptan 10 mg tablet See Rx Instructions PO .COMPLEX #9 10/22/22 05/06/23 Rx tabs amitriptyline 25 mg tablet 25 mg PO DAILY #30 tabs 04/15/23 05/06/23 Rx iron 1 tab PO DIRECTED 05/06/23 05/06/23 History metoclopramide HCl 10 mg tablet 0 mg PO Q6H PRN nausea and vomiting 05/06/23 05/06/23 History (Reglan) Patient History Medical History (Updated 05/07/23 @ 16:31 by Teresa George MD) Depression with anxiety Dry skin Epidermoid cyst 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 History of anemia Leg fracture, left GROWTH PLATE PPD positive Sinus bradycardia Von Willebrand disease Surgical History H/O colonoscopy H/O wisdom tooth extraction No history of previous surgery Family History Uncle Cancer Grandfather (Maternal) Cancer Father Clotting disorder Denies family history of Ovarian cancer Prostate cancer Breast cancer Colorectal cancer Social History Smoking Status: Former smoker Second Hand Exposure: No; Do You Dip or Chew Tobacco: No; Hx Alcohol Use: No Hx Substance Use: No Preferred Language: Thai Communication Ability: Effective Hearing Ability: Normal Business Development Director Required: No Beliefs That Will Affect Care: None marital status: Current Living Situation: Spouse Current Living Situation Comment: with current occupational status: employed How many Children do You have: 2 Other Information That Helps Us Care for You: No Feels Safe at Home: Yes Safety Concerns: Feels Safe At This Time caffeine: Yes Dental Care, Regularly: Yes Physical Activity Frequency: Does not Exercise Seatbelt Use: always Assistive Devices: None Review of System A complete ROS was performed and is negative except as mentioned in the HPI. Physical Exam Physical Exam: GEN: fatigued appearing HEENT: Normocephalic, atraumatic. EOMI. No oropharyngeal lesions or exudates LAD: No cervical, supraclavicular LAD. RESP: No increased work of breathing ABD: Soft, non-distended. Non-tender to palpation. EXT: No LE edema. Warm, well-perfused. SKIN: L posterior thigh with rounded elongated area of erythema without central darkening/clearing NEURO: Alert and oriented. Answers all questions appropriately. PSYCH: Normal mood, affect appropriate. Results & Data Vital Signs (Past 12 Hours) Vital Signs Temp Pulse Pulse Resp BP Pulse Ox Pulse Ox 05/07/23 06:10 85 05/07/23 08:13 37.2 C 85 18 107/69 97 05/07/23 05:33 90 05/07/23 04:54 37 C 96 H 14 100/64 96 05/07/23 03:58 36.5 C 05/06/23 22:18 77 18 108/61 98 05/06/23 23:47 81 18 108/64 98 05/06/23 23:47 98 05/06/23 23:37 107/62 05/06/23 23:00 90 17 115/61 98 05/06/23 21:38 39.3 C H O2 Del Method O2 Del Method 05/07/23 06:10 05/07/23 08:13 Room Air 05/07/23 05:33 05/07/23 04:54 Room Air 05/07/23 03:58 05/06/23 22:18 Room Air 05/06/23 23:47 Room Air 05/06/23 23:47 Room Air 05/06/23 23:37 05/06/23 23:00 Room Air 05/06/23 21:38 Laboratory Results Short CBC 05/06/23 05/07/23 Range/Units 17:55 05:57 WBC 4.78 L 4.00 L (4.8-10.8) K/ul Hgb 12.1 10.7 L (12.0-16.0) g/dl Hct 35.1 L 30.7 L (37.0-47.0) % Plt Count 115 L 79 L (130-400) K/uL BMP 05/06/23 05/07/23 17:55 05:57 Sodium 137 138 Potassium 3.8 3.6 Chloride 102 110 H Carbon Dioxide 27 23 BUN 14 8 Creatinine 0.72 0.52 L Glucose 87 91 Calcium 9.2 7.7 L Liver Function 05/06/23 05/07/23 Range/Units 17:55 05:57 Total Bilirubin 0.7 0.6 (0.2-1.0) mg/dl AST 18 23 (13-39) U/L ALT 13 19 (7-52) U/L Alkaline Phosphatase 68 50 (34-104) U/L Albumin 4.7 3.5 (3.4-5.0) gm/dl Urine 05/06/23 Range/Units 23:07 Urine Color Yellow Urine Appearance Clear (Clear) Urine pH 7.0 (4.5-7.5) Ur Specific [place] 1.020 (1.000-1.030) Urine Protein Negative (Negative) Urine Glucose (UA) Negative (Negative) Diagnostic Findings Chest X-Ray 05/06/23 17:31 XR chest 1V portable HISTORY: Chest pain, nonspecific COMPARISON: Chest 07/31/2022. FINDINGS: The lungs are clear. Cardiac silhouette is normal in size. No pleural effusions. No pneumothorax. IMPRESSION: No acute process. ACT 112: Negative or not required by law. Electronically signed by: Milton Huff M.D. 05/06/2023 7:03 PM Medications Administered Current Inpatient Medications Acetaminophen (Acetaminophen 325 Mg Tab) 650 mg PO Q4H PRN PRN Reason: Pain or Fever Stop: 06/05/23 23:46 Last Admin: 05/07/23 07:35 Dose: 650 mg Amitriptyline HCl (Amitriptyline Hcl 25 Mg Tab) 25 mg PO DAILY RADHA Stop: 06/06/23 08:59 Last Admin: 05/07/23 08:38 Dose: 25 mg Lactated Ringer's (Lr) 1,000 mls @ 125 mls/hr IV .Q8H RADHA Stop: 06/05/23 22:29 Last Admin: 05/07/23 09:42 Dose: 125 mls/hr Vancomycin HCl 1,000 mg/ (Sodium Chloride) 270 mls @ 200 mls/hr IV Q8H RADHA Stop: 05/14/23 07:59 Last Admin: 05/07/23 07:39 Dose: 200 mls/hr Lactobacillus Acidophilus (Advanced Probiotic 1250 Mg Capsule) 2 cap PO DAILY RADHA Stop: 06/06/23 08:59 Last Admin: 05/07/23 08:38 Dose: 2 cap Miscellaneous Information (Vancomycin Consult Active) 1 each N/A UD PRN PRN Reason: Consult Stop: 06/05/23 22:46 Ondansetron HCl (Ondansetron Inj 2 Mg/Ml 2 Ml Vial) 4 mg IV Q4H PRN PRN Reason: Nausea Stop: 06/05/23 23:46 Rizatriptan Benzoate (Rizatriptan Benzoate 10 Mg Tab) 10 mg PO DAILY PRN PRN Reason: Headache Stop: 06/05/23 23:46
[2023-05-07] MEDS: DOXYCYCLINE HYCLATE 100 MG CAP PO SCH ×2 (10:21→21:22)
--- NOTE | 2023-05-07 11:26 | Pharmacy Report ---
Pharmacy PK ABX Note - Date of Service May 07, 2023 - Assessment and Plan Laboratory Tests 05/06/23 17:55 Lyme Disease IgM Ab Equivocal A 05/06/23 21:38 Temperature 39.3 C H 05/06/23 05/07/23 17:55 05:57 WBC 4.78 L 4.00 L Assessment 28 year old F receiving IV Vancomycin + Doxycycline PO for treatment of SIRS. Anaplasma/Babesia smear: neg. Lyme screen: IgM equivocal, IgG negative, western blot pending Febrile yesterday, afebrile today, leukopenia, thrombocytopenia. Blood cultures pending, ID consult. Day # 2 of antimicrobial therapy. Plan Vancomycin * Loading dose: 1500 mg IV x 1 * Maintenance dose: 1000 mg IV every 8 hours * Regimen is predicted to achieve target AUC/MESFIN of 400-600 mg/L.hr * Trough level ordered for: 05/08/23 Doxycycline 100mg PO BID Pharmacy will continue to follow and will adjust dose/frequency as necessary. Thank you. Pharmacy has transitioned to AUC monitoring for vancomycin. AUC/MESFIN is the preferred PK/PD target and is associated with decreased risk of nephrotoxicity compared to traditional trough targets.
[2023-05-07 13:03] LABS: Adenovirus PCR Not Detected (NotDetected); Bordetella parapertussis PCR Not Detected (NotDetected); Bordetella pertussis PCR Not Detected (NotDetected); Chlamydia pneumoniae PCR Not Detected (NotDetected); Coronavirus 229E PCR Not Detected (NotDetected); Coronavirus CoV-2 (COVID19)PCR Not Detected (NotDetected); Coronavirus HKU1 PCR Not Detected (NotDetected); Coronavirus NL63 PCR Not Detected (NotDetected); Coronavirus OC43PCR Not Detected (NotDetected); Human Metapneumovirus PCR Not Detected (NotDetected); Influenza A PCR Not Detected (NotDetected); Influenza B PCR Not Detected (NotDetected); Mycoplasma pneumoniae PCR Not Detected (NotDetected); Parainfluenza Virus 1 PCR Not Detected (NotDetected); Parainfluenza Virus 2 PCR Not Detected (NotDetected); Parainfluenza Virus 3 PCR Not Detected (NotDetected); Parainfluenza Virus 4 PCR Not Detected (NotDetected); Respiratory Syncytial VirusPCR Not Detected (NotDetected); Rhinovirus/Enterovirus PCR Not Detected (NotDetected)
--- NOTE | 2023-05-07 14:31 | Electrocardiogram Report ---
Test Reason : Blood Pressure : / mmHG Vent. Rate : 091 BPM Atrial Rate : 091 BPM P-R Int : 154 ms QRS Dur : 074 ms QT Int : 376 ms P-R-T Axes : 070 052 054 degrees QTc Int : 462 ms Normal sinus rhythm Poor R wave progression, consider anterior [place] vs. lead placement vs. LVH When compared with ECG of 01-OCT-2018 09:53, No significant change was found Confirmed by Gus Mendoza ([id number]) on 05/07/2023 2:31:44 PM Referred By: REFERRED SELF Confirmed By:Henry Mendoza
--- NOTE | 2023-05-07 14:33 | Electrocardiogram Report ---
Test Reason : Blood Pressure : / mmHG Vent. Rate : 115 BPM Atrial Rate : 115 BPM P-R Int : 142 ms QRS Dur : 074 ms QT Int : 326 ms P-R-T Axes : 068 052 047 degrees QTc Int : 450 ms Sinus tachycardia Abnormal ECG When compared with ECG of 06-MAY-2023 17:50, (unconfirmed) Nonspecific T wave abnormality now evident in Inferior leads Confirmed by Gus Mendoza ([id number]) on 05/07/2023 2:33:23 PM Referred By: REFERRED SELF Confirmed By:Henry Mendoza
--- NOTE | 2023-05-07 14:40 | Electrocardiogram Report ---
Test Reason : Blood Pressure : / mmHG Vent. Rate : 099 BPM Atrial Rate : 099 BPM P-R Int : 158 ms QRS Dur : 078 ms QT Int : 352 ms P-R-T Axes : 063 042 041 degrees QTc Int : 451 ms Normal sinus rhythm Normal ECG When compared with ECG of 06-MAY-2023 21:07, (unconfirmed) Nonspecific T wave abnormality no longer evident in Anterior leads Confirmed by Gus Mendoza ([id number]) on 05/07/2023 2:39:35 PM Referred By: REFERRED SELF Confirmed By:Henry Mendoza
[2023-05-07] MEDS ORDERED: HYDROmorphone INJ 0.5 MG/0.5 ML SYR IV STA (17:54)
--- NOTE | 2023-05-07 18:58 | Billing Data ---
Date of Service May 07, 2023 Coding Level of Care Code 10184 SUB INP/OBS CARE MIN
[2023-05-08] MEDS: VANCOMYCIN HCL 1,000 MG in SODIUM CHLORIDE 0.9% 250 ML IV SCH ×2 (00:46→09:49)
[2023-05-08] MEDS: LACTATED RINGER'S 1,000 ML IV SCH ×2 (00:47→11:00)
[2023-05-08] MEDS: ACETAMINOPHEN 325 MG TAB PO PRN (00:52)
--- NOTE | 2023-05-08 04:37 | Billing Data ---
Date of Service May 08, 2023 Coding Level of Care Code 47480 INT INP/OBS CARE
[2023-05-08] MEDS ORDERED: VANCOMYCIN LEVEL ONE (07:30)
--- NOTE | 2023-05-08 07:32 | Hospitalist Progress Note ---
Date of Service May 08, 2023 Assessment & Plan (1) SIRS (systemic inflammatory response syndrome): Plan: Patient is a 28-year-old female with past medical history of migraines, von Willebrand factor 2N versus 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 Equivocal IgM Lyme antibody is positive, IgG is negative. Patient's low WBC (4) and low platelets (79) raise suspicion of anaplasmosis. Patient has an insect bite behind her left calf from 5 days ago that is surrounded by an area of erythema. Does not appear to be erythema migrans. Pos sible spider bite vs insect bite with surrounding cellulitis. Of note, the patient's son had a temperature (101.9) last night but no other symptoms. Patient admitted on broad spectrum antibiotics: doxycycline for coverage of possible tick-borne infection, vancomycin for possible spider bite coverage, and for cellulitis coverage. Infectious disease consulted agree with differential and plan. SIRS: -Admit to telemetry -Meeting SIRS criteria on admission with tachypnea, fever, and tachycardia Patient has been afebrile since 05/06 21:00, pulse and respiratory rate within normal limits. -Patient received 3 L of fluid in the ED, continue maintenance with lactated ringer -Source not identified as of yet. -Rash behind left knee does not appear to be erythema migrans -Timeline between bite and symptoms would not be indicative of acute Lyme disease but given endemic region cannot be ruled out entirely at this time. Lyme IgM equivocal, IgG negative. Lyme western blot pending. -Anaplasma and Babesia smears negative -- PCR ordered per ID -Blood cultures taken and pending -UA negative for nitrites. -Rocephin, doxycycline, vancomycin started on admission -- Rocephin stopped 05/07. -Doxycycline continued for presumptive tick borne illness -Vancomycin transitioned to cephalexin given clinical improvement and low suspicion of spider bite. -[facility] [place] ordered, appreciate recommendations -Per ID, respiratory viral panel ordered -- negative -Morning CBC, CMP, CRP Chest Pain: -CXR performed in ED was negative. -Troponins within normal limits -Repeat ECG 05/07 showed normal sinus rhythm. -TTE performed 05/07, negative. -Consider chest CT if cardiopulmonary chest pain does not resolve. (2) Elevated partial thromboplastin time (PTT): Plan: - Suspect from chronic bleeding disorders noted in chart -Unsure of actual diagnosis the patient has: Multiple notes say that she is only a carrier for either von Willebrand disease 2 and or hemophilia VIII without ruiz diagnosis. 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: Plan: See above (4) Von Willebrand disease: Plan: See above (5) History of migraine headaches: Plan: - Continue amitriptyline daily -Triptans as needed for termination Plan Dispo: Admit to telemetry for further infectious work-up and infectious disease consultation Diet: Regular DVT prophylaxis: SCDs CODE STATUS: Full code Admission and Anticipated Discharge Date Admission Date: May 06, 2023 Supervising Physician Co-Signing Physician Notes Attending addendum: I have physically seen this patient, have supervised the medical residents activities, and agree with the H&P unless as otherwise noted. 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 She says her joint/bone pain feels improved, but she is complaining of a headache and more frequent chest pain. Patient describes her chest pain as crushing, but non-radiating, and notes that it is associated with dyspnea. Pain is not reproducible with palpation, but patient notes that all of her joints are tender to the touch. 05/08: This morning Estefanía is much improved. Her joint pain has decreased and so has her headache. She continues to be bothered by chest pain, particularly when she is speaking, but thinks that is also somewhat improved. Physical Exam 2 Physical Exam: Constitutional: well developed, well nourished, ill appearing and lethargic HEENT: NCAT, anicteric sclerae Neuro: AO x 3, no focal neurologic defects Respiratory: normal respiratory effort, lungs clear to auscultation Cardiovascular: regular rhythm and tachycardic, no rubs murmurs or gallops. No edema Gastrointestinal (Abdomen): Normoactive bowel sounds. Non-tender, non-distended Musculoskeletal: Head/Neck/Chest: normocephalic and head atraumatic Skin: Erythematous rash behind the left knee with insect bite at the center - no associated central necrosis or fluctuance. Warm to the touch compared to surrounding skin. Decreased redness compared to yesterday but size about the same. Results & Data Results & Data Vital Signs (Past 12 Hours) Vital Signs Temp Pulse Pulse Resp BP Pulse Ox O2 Del Method 05/08/23 03:38 75 05/08/23 03:00 37.1 C 80 16 106/73 97 Room Air 05/07/23 23:00 37.1 C 74 18 106/71 98 Room Air Resident Activity Tracking Resident Involvement: Resident Care Provided Care Provided: Adult Hospital Medicine
[2023-05-08 08:26] LABS: Albumin Globulin Ratio 1.5 (0.9-2); Albumin Level 3.8 gm/dl (3.4-5.0); BUN Creatinine Ratio 13.2 (10-20); Bilirubin,Total 0.4 mg/dl (0.2-1.0); C Reactive Protein 9.89 mg/dl (0-0.5); Calcium 8.9 mg/dl (8.6-10.3); Creatinine Clr Calc Pharmacy 156.2 ml/min; Est GFR (African American) 149.8 ml/min; Est GFR (Non-African American) 129.2 ml/min; Globulin 2.5 gm/dl (2.5-4.0); Hemoglobin 10.7 g/dl (12.0-16.0); Mean Corpuscular Hemoglobin 28.8 pg (25.0-34.0); Mean Corpuscular Hgb Conc 34.5 g/dL (32.0-36.0); Mean Corpuscular Volume 83.6 fL (80.0-100.0); Mean Platelet Volume 11.3 fL (9.4-12.4); Platelet Count 92 K/uL (130-400); Potassium 3.9 mmol/L (3.5-5.1); RDW Coefficient of Variation 12.3 % (11.5-14.5); RDW Standard Deviation 37.4 fL (36.4-46.3); Red Blood Count 3.71 M/uL (4.20-5.40); Total Protein 6.3 gm/dl (6.0-8.3); White Blood Count 2.74 K/ul (4.8-10.8)
[2023-05-08] MEDS: DOXYCYCLINE HYCLATE 100 MG CAP PO SCH (08:59)
[2023-05-08] MEDS: AMITRIPTYLINE HCL 25 MG TAB PO SCH (08:59)
[2023-05-08] MEDS: ADVANCED PROBIOTIC 1250 MG CAPSULE PO SCH (08:59)
--- NOTE | 2023-05-08 09:44 | Pharmacy Report ---
Pharmacy PK ABX Note - Date of Service May 08, 2023 - Assessment and Plan Laboratory Tests 05/06/23 17:55 Lyme Disease IgM Ab Equivocal A 05/06/23 21:38 Temperature 39.3 C H 05/06/23 05/07/23 17:55 05:57 WBC 4.78 L 4.00 L Assessment 05/08: * Vancomycin level this AM ~12.6 mcg/ml - current vancomycin dosing appropriate to continue 05/07: * 28 year old F receiving IV Vancomycin + Doxycycline PO for treatment of SIRS. * Anaplasma/Babesia smear: neg. * Lyme screen: IgM equivocal, IgG negative, western blot pending * Febrile yesterday, afebrile today, leukopenia, thrombocytopenia. * Blood cultures pending, ID consult. Day # 2 of antimicrobial therapy. Plan Vancomycin * Continue vancomycin 1000 mg iv q 8 hours * Level this morning predictive of goal AUC/MESFIN 400-600 Doxycycline 100mg PO BID Pharmacy will continue to follow and will adjust dose/frequency as necessary. Thank you. Pharmacy has transitioned to AUC monitoring for vancomycin. AUC/MESFIN is the preferred PK/PD target and is associated with decreased risk of nephrotoxicity compared to traditional trough targets.
--- NOTE | 2023-05-08 09:57 | Infectious Disease Progress Nt ---
Date of Service May 08, 2023 Assessment & Plan (1) Leukopenia: (2) Fever: (3) Thrombocytopenia: Plan Micro: 05/07 RVP: negative 05/07 Babesia PCR: pending 05/07 Ehrlichia PCR: pending 05/06 Anaplasma PCR: pending 05/06 Anaplasma/Babesia smear: neg 05/06 Lyme screen: IgM equivocal, IgG negative. 05/06 COVID-19: neg 05/06 BCx x2: NGTD Abx: Vanc 05/06 - present Ceftriaxone 05/06 Doxycycline 05/06 - present Problems: #Fever #Leukopenia #Thrombocytopenia #L posterior thigh erythema 28 yo F with history of factor VIII deficiency, chronic thrombocytopenia, iron deficiency anemia, migraines who presented on 05/06 with chest pain, shortness of breath, achiness x 5 days, found to have fever, leukopenia, thrombocytopenia. Pt had an insect bite on posterior L thigh on 05/02 while [place], and developed some redness in the area with associated pain. A picture of the bite on 05/03 showed a small localized, well-demarcated bright red area with 3 bumps. On the night of 05/03, she began developing symptoms of generalized weakness and malaise, feeling hot/cold, shortness of breath, chest pain. Denies cough, sore throat, rhinorrhea, abd pain, diarrhea, dysuria, other rashes, neck stiffness. On presentation, initial VSS, but pt became febrile to 39.3, tachycardic to 130s in the evening. Labs showed WBC 4.78, Hb 12.1, plt 115 (has been ~140-160 over the last 2 years), normal LFTs, normal lactate, UA negative, COVID-19 negative. CXR negative. Lyme screen with equivocal IgM, negative IgG. Lyme western blot pending. Anaplasma/Babesia smear negative. Anaplasma, Ehrlichia, and Babesia PCR pending. Pt was started on empiric vanc, ceftriaxone, doxycycline--now ceftriaxone dc'ed. She lives in the [facility] [place], but does not interact with the cows much. Her son had a T101.9 last night, but is not displaying other symptoms. Denies recent travel. Has never traveled outside of the [place]. If this were a tickborne illness, it would likely be unrelated to the insect bite she sustained on 05/02, as tickborne illness typically has a longer incubation period. [place], so tickborne illness remains in the differential given her leukopenia and thrombocytopenia. Pt's showed a picture of the thigh rash on 05/06 with an area of central darkening--could consider a spider bite with systemic symptoms, potentially c/b cellulitis now. Recommendations: -Continue empiric doxycycline 100 mg PO BID to complete 10 day course (05/06 - 05/14) -Follow-up Lyme western blot, Anaplasma/Ehrlichia/Babesia PCR -Unclear that L posterior thigh erythema represents cellulitis vs localized reaction to insect bite. Can continue vanc for ? L posterior thigh cellulitis. If pt discharges over weekend, could de-escalate to cephalexin Will continue to follow. Please note that there will be no ID notes over the weekend. If urgent/time-sensitive questions or concerns arise, please contact the Infectious Disease Call Center and ask to speak with the covering ID physician. Admission and Anticipated Discharge Date Admission Date: May 06, 2023 Subjective Subsequent visit was provided via telemedicine using two-way real-time interactive telecommunication between the patient and the telemedicine provider. For the duration of the visit, the provider was performing the assessment from a different facility than the patient. This includesuse of bluetooth stethoscope forauscultationperformed by the telepresenter that the telemedicine provider can hear if described in the physical exam. Process Manager contact information: Please call [facility] Call [facility] . (Phone Number For Physician Use Only) After establishing a telemedicine visit, patient was: Patient was verified with two unique identifiers, Patient/authorized rep acknowledged consent and understanding and Gave permission to continue telehealth session Time Spent with Patient: Subsequent => 25 min AFebrile Reports feeling better today, although currently still with some headache and L chest pain WBC decreased to 2.74 today Review of System A complete ROS was performed and is negative except as mentioned in the HPI. Physical Exam Physical Exam: GEN: fatigued appearing RESP: No increased work of breathing EXT: No LE edema. Warm, well-perfused. SKIN: L posterior thigh with marked area of erythema with slight warmth NEURO: Alert and oriented. Answers all questions appropriately. Speech not slurred. PSYCH: Normal mood, affect appropriate. Results & Data Vital Signs (Past 12 Hours) Vital Signs Temp Pulse Pulse Resp BP Pulse Ox O2 Del Method 05/08/23 09:00 73 05/08/23 07:31 35.5 C L 55 L 20 110/76 96 Room Air 05/08/23 03:38 75 05/08/23 03:00 37.1 C 80 16 106/73 97 Room Air 05/07/23 23:00 37.1 C 74 18 106/71 98 Room Air Laboratory Results Short CBC 05/08/23 Range/Units 07:30 WBC 2.74 L (4.8-10.8) K/ul Hgb 10.7 L (12.0-16.0) g/dl Hct 31.0 L (37.0-47.0) % Plt Count 92 L (130-400) K/uL BMP 05/08/23 07:30 Sodium 137 Potassium 3.9 Chloride 107 Carbon Dioxide 26 BUN 7 Creatinine 0.53 L Glucose 92 Calcium 8.9 Liver Function 05/08/23 Range/Units 07:30 Total Bilirubin 0.4 (0.2-1.0) mg/dl AST 35 (13-39) U/L ALT 36 (7-52) U/L Alkaline Phosphatase 70 (34-104) U/L Albumin 3.8 (3.4-5.0) gm/dl Medications Administered Current Inpatient Medications Acetaminophen (Acetaminophen 325 Mg Tab) 650 mg PO Q4H PRN PRN Reason: Pain or Fever Stop: 06/05/23 23:46 Last Admin: 05/08/23 00:52 Dose: 650 mg Amitriptyline HCl (Amitriptyline Hcl 25 Mg Tab) 25 mg PO DAILY RADHA Stop: 06/06/23 08:59 Last Admin: 05/08/23 08:59 Dose: 25 mg Doxycycline Hyclate (Doxycycline Hyclate 100 Mg Cap) 100 mg PO BID RADHA Stop: 05/17/23 09:44 Last Admin: 05/08/23 08:59 Dose: 100 mg Lactated Ringer's (Lr) 1,000 mls @ 125 mls/hr IV .Q8H RADHA Stop: 06/05/23 22:29 Last Infusion: 05/08/23 02:11 Dose: 125 mls/hr Vancomycin HCl 1,000 mg/ (Sodium Chloride) 270 mls @ 200 mls/hr IV Q8H RADHA Stop: 05/14/23 07:59 Last Admin: 05/08/23 09:49 Dose: 200 mls/hr Lactobacillus Acidophilus (Advanced Probiotic 1250 Mg Capsule) 2 cap PO DAILY RADHA Stop: 06/06/23 08:59 Last Admin: 05/08/23 08:59 Dose: 2 cap Miscellaneous Information (Vancomycin Consult Active) 1 each N/A UD PRN PRN Reason: Consult Stop: 06/05/23 22:46 Ondansetron HCl (Ondansetron Inj 2 Mg/Ml 2 Ml Vial) 4 mg IV Q4H PRN PRN Reason: Nausea Stop: 06/05/23 23:46 Rizatriptan Benzoate (Rizatriptan Benzoate 10 Mg Tab) 10 mg PO DAILY PRN PRN Reason: Headache Stop: 06/05/23 23:46
[2023-05-08] MEDS ORDERED: HYDROmorphone INJ 0.5 MG/0.5 ML SYR IV STA (13:36)
[2023-05-08] MEDS: cephALEXin 500 MG CAP PO SCH ×2 (14:20→17:53)
--- NOTE | 2023-05-08 16:05 | Discharge Summary ---
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 Apparently, patient has a camp that they go to and recently while she was walking in the [facility], she notes that she was bit in the back of her left leg. Since that Thursday, she has had redness that has been increasing in size. Overall has been doing okay on the first and second day but became progressively more achy and generally unwell. She reports feeling hot and cold since this happened but no recorded fevers at home. No nausea or vomiting. She reports she feels very weak. No urinary symptoms. Majority of the information above was gathered from the patient's who is in the ED room because patient is quite lethargic. The patient is able to tell me that she has a headache at the back of her head. No neck stiffness or neurologic deficits as she is able to report. No other complaints at this time ED course: Patient evaluated in the ED and lab results significant for white blood cell count of 4.78, platelet count of 115, negative high-sensitivity troponin, and an equivocal Lyme IgM antibody. Negative Babesia and anaplasmosis peripheral blood smear. Chest x-ray showing no acute process. EKG showing normal sinus rhythm with nonspecific ST changes. Patient to be admitted and consulted by hospitalist service due to SIRS criteria with possible source being tickborne illness. Admission Exam Per Admitting Provider Constitutional: well developed, well nourished, + ill appearing and + lethargic Eyes: + anicteric sclerae Neck: normal visual inspection Respiratory: normal respiratory effort, lungs clear to auscultation Cardiovascular: Rate/Rhythm: regular rhythm and + tachycardic Extremities: no edema Gastrointestinal (Abdomen): Inspection/Auscultation: abdomen normal to inspection Musculoskeletal: Head/Neck/Chest: normocephalic and head atraumatic Generally weak Skin: Pt is diaphoretic Neurologic: moves all extremities Psychiatric: Orientation: alert, oriented x 3 and cooperative Lymphatic: no cervical or axillary lymphadenopathy Principal Diagnosis Tick Borne Illness Discharge Exam Constitutional: well developed, well nourished, ill appearing and lethargic HEENT: NCAT, anicteric sclerae Neuro: AO x 3, no focal neurologic defects Respiratory: normal respiratory effort, lungs clear to auscultation Cardiovascular: regular rhythm and tachycardic, no rubs murmurs or gallops. No edema Gastrointestinal (Abdomen): Normoactive bowel sounds. Non-tender, non-distended Musculoskeletal: Head/Neck/Chest: normocephalic and head atraumatic Skin: Erythematous rash behind the left knee with insect bite at the center - no associated central necrosis or fluctuance. Warm to the touch compared to surrounding skin. Decreased redness compared to yesterday but size about the same. 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 (1) SIRS: On admission, patient met SIRS criteria with tachypnea, fever, and tachycardia. She has been afebrile since 05/06 21:00, pulse and respiratory rate within normal limits. 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 Patient's low WBC (4) and low platelets (79) raise suspicion of anaplasmosis over lyme. Blood cultures showed no growth. Patient has an insect bite behind her left calf from 5 days ago that is surrounded by an area of erythema. Rash does not appear to be erythema migrans. Possible spider bite vs insect bite with surrounding cellulitis. Timeline between bite and symptoms would not be indicative of it being a tickbite causing the systemic symptoms, but given endemic region lyme cannot be ruled out entirely at this time. Lyme IgM equivocal, IgG negative. Lyme western blot pending. Other sources of infection were considered: UA was negative for nitrites, and respiratory virus panel was negative. Patient admitted on broad spectrum antibiotics: doxycycline for coverage of possible tick-borne infection, vancomycin for possible spider bite coverage, and for cellulitis coverage. Rocephin was started in the ED and was stopped 05/07. Infectious disease consulted agreed with differential and plan. -Patient discharged on Doxycycline 100mg twice a day for 10 days (reassessment to determine total duration of antibiotics by PCP) for presumptive tick borne illness -Vancomycin transitioned to cephalexin given clinical improvement and low suspicion of spider bite. Patient discharged on Cephalexin 500mg four times a day for 7 days to cover cellulitis. Reassessment outpatient to determine total duration of antibiotics. -Anaplasma and Babesia smears negative -- PCR ordered per ID, please follow up outpatient -Lyme western blot pending -- please follow up outpatient (2) Chest Pain: Most likely sternocostal and related to the patient's joint pain as opposed to a pulmonary or cardiac etiology given negative chest x-ray, normal troponin, repeat normal ECGs, and normal echo. Pain has been gradually improving. -Follow up outpatient to assess for continued improvement Total Time Total Time Spent Total Time Spent (In Minutes): <30 Discharge Plan Discharge Items Patient Disposition: Home - Self-Care Reason For Visit: SEPSIS Discharge Diagnosis: Tick Borne Illness Activity: Per Instructions section Non-emergency contact: Primary Care Provider Call non-emergency contact if: you have any medication questions and your pain is not controlled Follow-up/Referrals: Ryann Lopes MD [Primary Care Provider] - 05/18/23 1:00 pm Diet: Regular Addtl Attending Provider Instructions: You were admitted to the hospital for evaluation of chest discomfort, generalized achiness and shortness of breath. You were admitted for diagnostic evaluation and ultimately found to have a tick borne illness. While we discussed Lyme disease (equivocal/inconclusive testing at this time), Anaplasmosis, and Babesiosis, your lab values (low WBC, low HgB, and low platelets) were most consistent with Anaplasmosis. Because of our high clinical suspicion for anaplasmosis, we started you on an antibiotic Doxycycline which we recommend that you continue over the next 10 days. In addition, the weekend prior to presentation to the hospital, you were bitten by an unspecified insect. The bite has resulted in cellulitis behind your left knee. You were treated inpatient with a broad spectrum antibiotic Vancomycin, since the bite did not develop an area of central necrosis (darkening), we were able to de-escalate your antibiotics to Cephalexin (Keflex). We recommend that you continue to take the Keflex for 7 days following discharge. Recommendations: - Follow up with PCP in 1 week - Continue Doxycycline 100 mg twice a day for 10 days (discuss total duration with PCP) for tick borne illness - Continue Keflex 500 mg four times a day for 7 days for cellulitis - Upon discharge, continue to hydrate well with at least 64 ounces of water daily Pending Studies at Discharge: Yes Studies:: Anaplasma DNA, Babesiosis DNA, Lyme Western Blot Stand-Alone Forms: My [facility], Pain - Opioid Pain Management, Work/School Release, Smoking Cessation Medications and DC Order Prescriptions: New doxycycline hyclate 100 mg Capsule 100 mg PO BID 10 Days Qty: 20 0RF cephalexin 500 mg Capsule 500 mg PO QID 7 Days Qty: 28 0RF Continued meclizine 12.5 mg tablet 12.5 mg PO TID PRN (Reason: dizziness) Qty: 30 0RF Fluzone Quad [id number] (PF) 60 mcg (15 mcg x 4)/0.5 mL syringe 0.5 ml IM ONCE Qty: 0.5 0RF tranexamic acid 500 mg tablet 500 mg PO .COMPLEX Rx Instructions: 1000 mg orally every 4 hours during menstrual cycle; rizatriptan 10 mg tablet See Rx Instructions PO .COMPLEX Qty: 9 2RF Rx Instructions: take 1 tab at onset of headache; if no relief may repeat 1 tab after at least 2 hrs; max = 3 tabs/24 hr PO amitriptyline 25 mg tablet 25 mg PO DAILY Qty: 30 2RF Nurtec ODT 75 mg tablet,disintegrating 75 mg PO DIRECTED PRN (Reason: Migraine Headache) 0RF metoclopramide HCl [Reglan] 10 mg tablet 0 mg PO Q6H PRN (Reason: nausea and vomiting) Rx Instructions: pt isn't sure of this medication iron 1 tab PO DIRECTED Discharge Orders: Discharge Order (Routine); Ordered 05/08/23 Ordered By: Guille Hodge Admission Data Admit Date/Time: 05/06/23 22:38 Attending Provider: Fransico James Admit Provider: Audie Chan Primary Care Provider: Ryann Lopes Other Providers: Kush Lam ; Tanja Armenta ; Edre Cody ; Teresa George ; Gomez Muhammad ; Vianney Tilley ; An Amador ; Gillian Resendiz ; Alison Valente ; Vicki Taylor Other Interventions: Discharge Summary Assessment (RN) Last Done: 05/08/23 16:48 Supervising Physician Co-Signing Physician Notes I personally examined the patient and verified all dugan points of history and exam, discussed case, and agree with decision making with Dr Hodge feeling better than yesterday and better overall. Vitals noted, in general she is awake and alert pleasant no distress. HEENT normocephalic atraumatic mucous membranes moist. Breathing unlabored no accessory muscle use good effort. area of erythema behind her knee now not at all red, basically just dull almst jose c to a resolving bruise - very faint. nontender. no fluctuance. no necrosis SepsisresolvingI suspect she probably has 2 processes at playbody aches combined with leukopenia and thrombocytopenia fits a good bit with anaplasmosis which is extremely common here. Her photograph from prior makes it seem quite consistent that the lesion behind her knee may have been cellulitis from a spider bite. At any rate she is appearing improving, and safe/stable for home. Given that we are working with 2 different diagnoses, we will utilize doxycycline to cover for the presumed tickborne illness, but at the same time we will add Keflex given that cellulitis frequently has strep and doxycycline does not cover quite as well. Also discussed that while I suspect her body aches are due to anaplasmosis, if her joint pains persist and her Lyme IgM's, positive (both factors) then we could be looking at Lyme arthritis as well and need to extend the course of doxycyclineI doubt this will be the case. Has PCP follow- up in about 4 daysfollow-up lab work and clinical assessment then. Resident Activity Tracking Resident Involvement: Resident Care Provided Care Provided: Adult [facility]
--- NOTE | 2023-05-08 19:41 | Billing Data ---
Date of Service May 08, 2023 Coding Level of Care Code 98153 IN/OBS DISCH 30 MIN/LESS
[2023-05-12 01:37] LABS: 18KDIGG Band NON-REACTIVE; 23KDIGG Band NON-REACTIVE; 23KDIGM Band REACTIVE; 28KDIGG Band NON-REACTIVE; 30KDIGG Band NON-REACTIVE; 39KDIGG Band NON-REACTIVE; 39KDIGM Band NON-REACTIVE; 41KDIGG Band NON-REACTIVE; 41KDIGM Band NON-REACTIVE; 45KDIGG Band NON-REACTIVE; 58KDIGG Band NON-REACTIVE; 66KDIGG Band NON-REACTIVE; 93KDIGG Band NON-REACTIVE; Lyme Antibodies, WB IgG NEGATIVE (NEGATIVE); Lyme Antibodies, WB IgM NEGATIVE (NEGATIVE)
[2023-05-13 03:37] LABS: Babesia microti DNA Not Detected (Not Detected)
[2023-05-13 15:13] LABS: Ehrlichia chaff DNA Bld Negative (Negative)
== END 2023-05-08 18:30 | disposition home or self-care (01) | DRG 871 ==
LOC: ED 17:22 → SUATTDRO 22:38 → EDINP 22:38 → 2S 23:48